=== PATIENT | female | born 1990 | race African-American/Black ===

== ENCOUNTER 2019-02-01 22:30 | Emergency (ER) | payer MEDICAID, OTHER ==
[~2019-02-01] VITALS: Ht 162.6 cm; Wt 88.0 kg
[2019-02-02 02:21] LABS: CLARITY URINE CLEAR (CLEAR); COLOR URINE YELLOW (YELLOW); KETONES URINE NEGATIVE (NEGATIVE); LEUKOCYTE ESTERASE URINE 1+ (NEGATIVE); NITRITE URINE NEGATIVE (NEGATIVE); OCCULT BLOOD URINE 2+ (NEGATIVE); PH URINE 5.5 (4.5-8.0); PROTEIN URINE NEGATIVE (NEGATIVE); SPECIFIC GRAVITY URINE 1.017 (1.005-1.030); UROBILINOGEN URINE 0.2 E.U./dL (0.2-1.0)
[2019-02-02 02:27] LABS: BASOPHILS % 1.3 % (0.0-2.0); EOSINOPHILS % 11.1 % (0.0-5.0); HEMATOCRIT. 31.6 % (36.0-48.0); HEMOGLOBIN. 10.5 g/dL (12.0-16.0); LYMPHOCYTES % 41.3 % (20.0-50.0); MEAN CORPUSCULAR HEMOGLOBIN 29.7 pg (28.0-32.0); MEAN CORPUSCULAR VOLUME 89.4 fL (81.0-99.0); MEAN PLATELET VOLUME 8.4 fl (7.4-10.4); MONOCYTES % 6.5 % (2.0-8.0); NEUTROPHILS % 39.8 % (40.0-76.0); PLATELET 271 x1000/uL (130-400); RED BLOOD CELL COUNT 3.54 mill/uL (4.2-5.4); RED CELL DISTRIBUTION WIDTH 14.6 % (11.6-14.6)
[2019-02-02 02:32] LABS: CHLORIDE 110 mEq/L (98-107)
[2019-02-02 02:45] LABS: B-HCG QUANTITATIVE 430 mIU/mL (<3)
[2019-02-02 05:00] VITALS: BP 108/65
== END 2019-02-02 05:55 | disposition home or self-care (01) ==
LOC: ER 22:36
DX: O20.0 Threatened abortion (principal); O99.331 Smoking (tobacco) complicating pregnancy, first trimester; J45.909 Unspecified asthma, uncomplicated; O26.891 Other specified pregnancy related conditions, first trimester; Z3A.10 10 weeks gestation of pregnancy
CPT/HCPCS: 36415; 76801; 81003; 81025; 84702; 86850; 86900; 99284

== ENCOUNTER 2019-02-02 14:48 | Emergency (ER) | payer MEDICAID ==
[~2019-02-02] VITALS: Ht 162.6 cm; Wt 73.0 kg
[2019-02-02 15:45] LABS: BASOPHILS % 1.3 % (0.0-2.0); CHLORIDE 109 mEq/L (98-107); EOSINOPHILS % 11.3 % (0.0-5.0); HEMOGLOBIN. 10.8 g/dL (12.0-16.0); LYMPHOCYTES % 33.1 % (20.0-50.0); MEAN CORPUSCULAR HEMOGLOBIN 30.5 pg (28.0-32.0); MEAN CORPUSCULAR VOLUME 90.3 fL (81.0-99.0); MEAN PLATELET VOLUME 8.3 fl (7.4-10.4); MONOCYTES % 7.3 % (2.0-8.0); PLATELET 267 x1000/uL (130-400); RED BLOOD CELL COUNT 3.55 mill/uL (4.2-5.4); RED CELL DISTRIBUTION WIDTH 14.4 % (11.6-14.6)
[2019-02-02 15:56] LABS: B-HCG QUANTITATIVE 407 mIU/mL (<3)
[2019-02-02 17:25] VITALS: BP 115/57
== END 2019-02-02 17:10 | disposition home or self-care (01) ==
LOC: ER 14:55
DX: O20.0 Threatened abortion (principal); O99.331 Smoking (tobacco) complicating pregnancy, first trimester; J45.909 Unspecified asthma, uncomplicated; O26.891 Other specified pregnancy related conditions, first trimester; Z3A.10 10 weeks gestation of pregnancy
CPT/HCPCS: 36415; 84702; 86850; 86900; 99283

== ENCOUNTER 2019-02-04 22:29 | Emergency (ER) | payer MEDICAID ==
[~2019-02-04] VITALS: Ht 165.1 cm; Wt 73.0 kg
[2019-02-04] MEDS ORDERED: SODIUM CHLORIDE 0.9% 1,000 ML IV ONE (23:01)
[2019-02-04 23:18] LABS: BASOPHILS % 0.6 % (0.0-2.0); EOSINOPHILS % 12.6 % (0.0-5.0); HEMATOCRIT. 32.3 % (36.0-48.0); LYMPHOCYTES % 42.6 % (20.0-50.0); MEAN CORPUSCULAR HEMOGLOBIN 30.8 pg (28.0-32.0); MEAN CORPUSCULAR VOLUME 90.4 fL (81.0-99.0); MEAN PLATELET VOLUME 8.2 fl (7.4-10.4); MONOCYTES % 7.7 % (2.0-8.0); NEUTROPHILS % 36.5 % (40.0-76.0); PLATELET 267 x1000/uL (130-400); RED BLOOD CELL COUNT 3.57 mill/uL (4.2-5.4); RED CELL DISTRIBUTION WIDTH 14.4 % (11.6-14.6)
[2019-02-04 23:24] LABS: CHLORIDE 108 mEq/L (98-107)
[2019-02-04 23:28] LABS: PROTHROMBIN TIME 10.3 sec (9.6-11.0)
[2019-02-04 23:34] LABS: B-HCG QUANTITATIVE 44 mIU/mL (<3)
[2019-02-05 00:57] LABS: CLARITY URINE CLEAR (CLEAR); COLOR URINE YELLOW (YELLOW); KETONES URINE NEGATIVE (NEGATIVE); LEUKOCYTE ESTERASE URINE NEGATIVE (NEGATIVE); NITRITE URINE NEGATIVE (NEGATIVE); OCCULT BLOOD URINE 2+ (NEGATIVE); PROTEIN URINE NEGATIVE (NEGATIVE); SPECIFIC GRAVITY URINE 1.003 (1.005-1.030); UROBILINOGEN URINE 0.2 E.U./dL (0.2-1.0)
[2019-02-05 01:05] LABS: *COCAINE SCREEN URINE NEGATIVE (NEGATIVE); METHADONE URINE SCREEN NEGATIVE (NEGATIVE)
[2019-02-05 01:06] LABS: *AMPHETAMINES SCREEN URINE NEGATIVE (NEGATIVE); *BARBITURATES SCREEN URINE NEGATIVE (NEGATIVE); *BENZODIAZEPINES SCREEN URINE NEGATIVE (NEGATIVE); CANNABINOID URINE SCREEN NEGATIVE (NEGATIVE); PHENCYCLIDINE URINE SCREEN NEGATIVE (NEGATIVE)
[2019-02-05 01:08] LABS: OPIATES URINE SCREEN NEGATIVE (NEGATIVE)
[2019-02-05] MEDS ORDERED: KETOROLAC 30MG/ML VIAL IV ONE (01:15)
[2019-02-05] MEDS ORDERED: MISOPROSTOL 200MCG TABLET PO ONE (01:15)
[2019-02-05 02:33] VITALS: BP 127/74
== END 2019-02-05 02:34 | disposition home or self-care (01) ==
LOC: ER 22:29 → CANBEDREQ 02-05 03:50
DX: O20.9 Hemorrhage in early pregnancy, unspecified (principal); O99.511 Diseases of the respiratory system complicating pregnancy, first trimester; J45.909 Unspecified asthma, uncomplicated; O23.40 Unspecified infection of urinary tract in pregnancy, unspecified trimester; Z3A.00 Weeks of gestation of pregnancy not specified; Z98.890 Other specified postprocedural states
CPT/HCPCS: 36415; 76801; 76817; 80053; 80305; 81003; 81025; 84702; 85025; 85610; 86850; 86900; 86901; 96374; 99284; J1885; J7030; Z7610

== ENCOUNTER 2019-02-13 01:18 | Emergency (ER) | payer MEDICAID ==
[~2019-02-13] VITALS: Ht 162.6 cm; Wt 91.0 kg
[2019-02-13] MEDS ORDERED: ALBUTEROL (0.083%) 2.5MG/3ML NEB HHN STA (03:02)
[2019-02-13] MEDS ORDERED: PREDNISONE 20MG TABLET PO STA (03:02)
[2019-02-13] MEDS ORDERED: IPRATROPIUM BROMIDE (0.02%) 0.5MG/2.5ML NEB HHN STA (03:02)
[2019-02-13 05:56] VITALS: BP 130/72
== END 2019-02-13 06:13 | disposition home or self-care (01) ==
LOC: ER 01:43
DX: J45.901 Unspecified asthma with (acute) exacerbation (principal); F17.200 Nicotine dependence, unspecified, uncomplicated; J45.909 Unspecified asthma, uncomplicated; Z98.890 Other specified postprocedural states; Z87.440 Personal history of urinary (tract) infections
CPT/HCPCS: 81025; 94640; 99283; J7512; J7611; Z7610

== ENCOUNTER 2019-02-16 01:31 | Emergency (ER) | payer MEDICAID ==
[~2019-02-16] VITALS: Ht 162.6 cm; Wt 90.0 kg
[2019-02-16] MEDS ORDERED: IPRATROPIUM BROMIDE (0.02%) 0.5MG/2.5ML NEB HHN STA (02:26)
[2019-02-16] MEDS ORDERED: PREDNISONE 20MG TABLET PO STA (02:26)
[2019-02-16] MEDS ORDERED: ALBUTEROL (0.083%) 2.5MG/3ML NEB HHN STA (02:26)
[2019-02-16 05:00] VITALS: BP 137/74
== END 2019-02-16 05:00 | disposition home or self-care (01) ==
LOC: ER 01:31
DX: J45.901 Unspecified asthma with (acute) exacerbation (principal); F17.200 Nicotine dependence, unspecified, uncomplicated; Z71.6 Tobacco abuse counseling
CPT/HCPCS: 81025; 94644; 99285; 99406; J7512; J7611; Z7610